=== PATIENT | male | born 1960 | race Caucasian/White ===

== ENCOUNTER 2017-03-31 07:48 | Emergency (ER) | payer OTHER ==
[2017-03-31 08:33] VITALS: BP 131/91
== END 2017-03-31 08:33 | disposition home or self-care (01) ==
LOC: ED 07:48
DX: J02.9 Acute pharyngitis, unspecified (principal)
CPT/HCPCS: Q0092

== ENCOUNTER 2017-08-04 09:19 | Emergency (ER) | payer OTHER ==
[2017-08-04 09:40] VITALS: BP 132/83
== END 2017-08-04 11:11 | disposition home or self-care (01) ==
LOC: ED 09:19
DX: M54.5 Low back pain (principal); I10 Essential (primary) hypertension
CPT/HCPCS: J1885

== ENCOUNTER 2017-12-16 14:06 | Emergency (ER) | payer OTHER ==
[~2017-12-16] VITALS: Ht 162.6 cm; Wt 89.1 kg
[2017-12-16 14:18] VITALS: Ht 162.6 cm; Wt 89.1 kg
[2017-12-16 16:05] VITALS: BP 145/82
== END 2017-12-16 16:05 | disposition home or self-care (01) ==
LOC: ED 14:06
DX: M54.5 Low back pain (principal); I10 Essential (primary) hypertension
CPT/HCPCS: J1200; J1885; J2270

== ENCOUNTER 2019-12-15 10:11 | Day surgery (SDC) | payer OTHER ==
[~2019-12-15] VITALS: Ht 165.1 cm; Wt 88.5 kg
[2019-12-15 10:32] VITALS: BP 153/76
[2019-12-15 15:20] VITALS: BP 134/74
== END 2019-12-15 15:15 | disposition home or self-care (01) ==
LOC: DS 10:11 → OR 13:00 → DS 15:15
DX: K40.30 Unilateral inguinal hernia, with obstruction, without gangrene, not specified as recurrent (principal); E66.3 Overweight; J45.909 Unspecified asthma, uncomplicated; I25.10 Atherosclerotic heart disease of native coronary artery without angina pectoris; E11.22 Type 2 diabetes mellitus with diabetic chronic kidney disease; I12.9 Hypertensive chronic kidney disease with stage 1 through stage 4 chronic kidney disease, or unspecified chronic kidney disease; N18.9 Chronic kidney disease, unspecified; D64.9 Anemia, unspecified; K21.9 Gastro-esophageal reflux disease without esophagitis; F03.90 Unspecified dementia, unspecified severity, without behavioral disturbance, psychotic disturbance, mood disturbance, and anxiety; Z87.891 Personal history of nicotine dependence; Z86.73 Personal history of transient ischemic attack (TIA), and cerebral infarction without residual deficits; Z68.32 Body mass index [BMI] 32.0-32.9, adult
CPT/HCPCS: 82962; C1781; J0690; J2250; J2704; J3010; J3490; J7030

== ENCOUNTER 2020-04-11 08:39 | Emergency (ER) | payer MEDICAID ==
[~2020-04-11] VITALS: Ht 165.1 cm; Wt 88.5 kg
[2020-04-11 08:44] VITALS: Ht 165.1 cm; Wt 88.5 kg
[2020-04-11 10:14] VITALS: BP 131/68
== END 2020-04-11 10:14 | disposition home or self-care (01) ==
LOC: ED 08:39
DX: M54.5 Low back pain (principal); I10 Essential (primary) hypertension; X50.0XXA Overexertion from strenuous movement or load, initial encounter; Y93.89 Activity, other specified; Y92.89 Other specified places as the place of occurrence of the external cause; Y99.8 Other external cause status

== ENCOUNTER 2020-06-11 07:48 | Emergency (ER) | payer OTHER ==
[~2020-06-11] VITALS: Ht 165.1 cm; Wt 83.9 kg
[2020-06-11 07:53] VITALS: BP 125/85; Ht 165.1 cm; Wt 83.9 kg
== END 2020-06-11 09:26 | disposition home or self-care (01) ==
LOC: ED 07:48
DX: M62.830 Muscle spasm of back (principal); I10 Essential (primary) hypertension; Z98.890 Other specified postprocedural states
CPT/HCPCS: J1885